=== PATIENT | female | born 1975 | race Caucasian/White ===

== ENCOUNTER 2019-04-15 07:13 | Emergency (ER) | payer SELFPAY ==
[~2019-04-15] VITALS: Ht 160 cm; Wt 79.8 kg
--- NOTE | 2019-04-15 07:27 | NUR ---
Patient to ER bed 3 to gown for evaluation. Side rails up. Report given to Delicia HATHAWAY.
[2019-04-15 07:28] VITALS: BP_SYST 117
--- NOTE | 2019-04-15 07:35 | NUR ---
Pt was BIB BLS from home c/o sore throat. Per pt, "I feel like my throat is constricting." Pt complains of difficulty swallowing and feeling short of breath. Pt denies N/V, fever, or chest pain. O2 saturation on room air is 98%. No other injuries/complaints per patient or noted.
--- NOTE | 2019-04-15 08:00 | NUR ---
ER Dr. Alfred at bedside examining patient.
[2019-04-15] MEDS ORDERED: LORazepam 1 MG TABLET PO ONE (08:15)
[2019-04-15] MEDS ORDERED: MAG HYDROX/AL HYDROX/SIMETH 30 ML, DICYCLOMINE HCL 20 MG, LIDOCAINE VISCOUS 2% 15ML (PO... PO ONE ×3 (08:15)
--- NOTE | 2019-04-15 09:41 | NUR ---
Patient given written and verbal discharge instructions and verbalizes understanding. ER Dr. Alfred discussed with patient the results and treatment provided. Patient in stable condition. ID arm band removed. Rx of Ativan given. Patient educated on pain management and to follow up with PMD. Pain Scale 0/10. Opportunity for questions provided and answered. Medication side effect fact sheet provided.
[2019-04-15 09:44] VITALS: BP_SYST 120
== END 2019-04-15 09:41 | disposition home or self-care (01) ==
LOC: SED 07:13
DX: F45.8 Other somatoform disorders (principal); F41.9 Anxiety disorder, unspecified; Z88.5 Allergy status to narcotic agent
CPT/HCPCS: 99283; J2001

== ENCOUNTER 2023-02-18 19:23 | Emergency (ER) | payer OTHER ==
[~2023-02-18] VITALS: Ht 160 cm; Wt 77.1 kg
[2023-02-18 19:42] VITALS: BP_SYST 124
--- NOTE | 2023-02-18 19:50 | NUR ---
PATIENT PLACED IN CHAIR TWO AT THIS TIME, COMPLAINTS OF RIGHT CALF PAIN DUE TO A BEAM FALLING ON CALF, PAIN 8/10 PAIN NOTED, SMALL ABRADION NOTED TO BACH OF RIGHT CALF, NO ACTIVE BLEEDING NOTED
--- NOTE | 2023-02-18 20:00 | NUR ---
ICE PACK AND PILLOW APPLIED TO RIGHT CALF, AT BEDSIDE
--- NOTE | 2023-02-18 20:15 | NUR ---
AT BEDSIDE FOR ASSESSMENT
--- NOTE | 2023-02-18 20:18 | NUR ---
PATIENT HAS BEEN IN MENOPAUSE FOR 2 YEARS, URINE NOT NEEDED
[2023-02-18] MEDS ORDERED: fentaNYL CITRATE/PF 100 MCG/2 ML AMP IVP ONE (20:30)
[2023-02-18] MEDS ORDERED: KETOROLAC TROMETHAMINE 15 MG VIAL IVP ONE (20:30)
[2023-02-18 20:53] LABS: BASOPHILS # (AUTO) 0.1 K/uL (0.0-0.2); BASOPHILS % (AUTO) 0.8 % (0.0-2.0); EOSINOPHILS # (AUTO) 0.1 K/uL (0.0-0.4); EOSINOPHILS % (AUTO) 2.1 % (0.0-4.0); HEMATOCRIT 35.3 % (36-48); HEMOGLOBIN 11.7 g/dL (12.0-16.0); MEAN CORPUSCULAR HEMOGLOBIN 29 pg (27-31); MEAN CORPUSCULAR HGB CONC 33 % (32-36); MEAN CORPUSCULAR VOLUME 88 fL (79.0-98.0); MONOCYTES # (AUTO) 0.4 K/uL (0.0-1.0); MONOCYTES % (AUTO) 5.9 % (1.7-9.3); NEUTROPHILS # (AUTO) 4.5 K/uL (1.8-7.7); NEUTROPHILS % (AUTO) 63.2 % (40.0-70.0); PLATELET COUNT (AUTO) 260 K/uL (130-430); RED BLOOD CELL COUNT(AUTO) 4.01 MIL/uL (4.2-6.2); RED CELL DISTRIBUTION WIDTH 13.5 % (9.0-15.0); WHITE BLOOD COUNT (AUTO) 7.1 K/uL (4.8-10.8)
[2023-02-18 21:04] LABS: CALCIUM 8.8 mg/dL (8.4-11.0); CREATININE 0.88 mg/dL (0.55-1.30)
[2023-02-18 21:08] LABS: PROTHROMBIN TIME 9.9 SECS (9.5-12.5)
[2023-02-18 21:09] LABS: ALBUMIN 3.8 g/dL (3.4-4.8); TOTAL BILIRUBIN 0.2 mg/dL (0.0-1.0)
[2023-02-18] MEDS ORDERED: iohexoL 350 mgI/mL, 100 ML INFUS..BTL IV ONE (21:10)
--- NOTE | 2023-02-18 21:29 | NUR ---
PATIENT NOTED BEING TRANSPORTED TO RADIOLOGY FOR CTA OF RIGHT LEG
--- NOTE | 2023-02-18 23:32 | NUR ---
PATIENT NOTED RESTINGI BED, VITALS ARE STABLE AT THIS TIME
[2023-02-18] MEDS ORDERED: IBUP-1969 PO (23:55)
[2023-02-18] MEDS ORDERED: OXYC-128 PO (23:55)
[2023-02-19] MEDS ORDERED: OXYCODONE/ACETAMINOPHEN 5-325 TABLET PO ONE
--- NOTE | 2023-02-19 00:17 | NUR ---
Patient given written and verbal discharge instructions and verbalizes understanding. ER MD discussed with patient the results and treatment provided. Patient in stable condition. ID arm band removed. IV catheter removed intact and dressing applied, no active bleeding.CRUTCHES GIVEN, INSTRUCTIONS FOR CRUTCH USE PROVIDED. Rx of given. Patient educated on pain management and to follow up with PMD. Pain Scale 4/10. Opportunity for questions provided and answered. Medication side effect fact sheet provided. WORK NOTE PROVIDED
[2023-02-19 00:22] VITALS: BP_SYST 111
== END 2023-02-19 00:22 | disposition home or self-care (01) ==
LOC: SED 19:23
DX: S80.11XA Contusion of right lower leg, initial encounter (principal); Z88.5 Allergy status to narcotic agent; Z79.899 Other long term (current) drug therapy; W22.8XXA Striking against or struck by other objects, initial encounter; Y93.89 Activity, other specified; Y92.89 Other specified places as the place of occurrence of the external cause; Y99.8 Other external cause status
CPT/HCPCS: 99285; 96374; 73706; 96375; 80053; 84703; 85025; 85610; 36415; 76376; Q9967; J1885; J3010